=== PATIENT | male | born 1970 | race Caucasian/White ===

== ENCOUNTER 2023-09-28 14:11 | Emergency (ER) | payer OTHER, SELFPAY ==
[2023-09-28] VITALS (15 sets, daily range): BP systolic 122–193; BP diastolic 81–112; PULSE 69–83; RESP 14–25; TEMP 36.7; O2SAT 92–98; BMI 37.3
--- NOTE | 2023-09-28 14:31 | ECG_ITS ---
[facility] Test Date: 2023-09-28 Pat Name: Ubaldo Renee Department: Room: Gender: Male [employer]: : 1970 Requested By: Negrita Logan Order Number: [id number] Trinidad MD: Mathew Goodman M.D. Measurements Intervals [place] Rate: 83 P: 75 OR: 201 QRS: 66 QRSD: 106 T: 54 QT: 340 QTc: 402 Interpretive Statements SINUS RHYTHM Compared to ECG 12/08/2014 18:53:52 No significant changes Electronically Signed On 09-28-2023 20:06:56 CDT by Mathew Goodman M.D. [id number]
--- NOTE | 2023-09-28 14:31 | XRR_ITS ---
PROCEDURE INFORMATION: Exam: XR Chest Exam date and time: 09/28/2023 3:02 PM Age: 53 years old Clinical indication: Pain; Chest pressure; Additional info: Cp TECHNIQUE: Imaging protocol: Radiologic exam of the chest. Views: 1 view. COMPARISON: No relevant prior studies available. FINDINGS: Lungs: There is a 15 mm rounded density in the left lower lobe with no corresponding density on the contralateral side. While this still may represent a nipple shadow, a true pulmonary nodule cannot be excluded and a chest CT may be of benefit. Pleural spaces: Unremarkable. No pleural effusion. No pneumothorax. Heart/Mediastinum: Unremarkable. No cardiomegaly. Bones/joints: Unremarkable. XR/XR chest 1V portable [id number] IMPRESSION: There is a 15 mm rounded density in the left lower lobe with no corresponding density on the contralateral side. While this still may represent a nipple shadow, a true pulmonary nodule cannot be excluded and a chest CT may be of benefit.
[2023-09-28 14:57] LABS: Basophils % 0.5 %; Eosinophils # 0.2 10^3/uL (0.0-0.8); Hematocrit 44.5 % (37-53); Lymphocytes # 2.3 10^3/uL (0.8-4.8); Mean Corpuscular HGB Conc 32.6 g/dL (30-55); Mean Corpuscular Hemoglobin 29.6 pg (27-33); Mean Corpuscular Volume 90.8 fl (82-101); Mean Platelet Volume 10.1 fL (7.4-10.4); Monocytes # 0.6 10^3/uL (0.2-0.9); Monocytes % 8.1 %; Neutrophils # 4.38 10^3/uL (1.8-7.7); Neutrophils % 58.1 %; Nucleated Red Blood Cells % 0 %; Platelet Count 251 10^3/cmm (157-399); Red Cell Distribution Width 13.7 % (12.1-15.1); White Blood Count 7.54 10^3/uL (3.29-11.43)
[2023-09-28 15:15] LABS: Alanine Aminotransferase 19 U/L (0-41); Albumin Level 4.2 g/dL (3.5-5.2); Alkaline Phosphatase 72 U/L (40-130); Anion Gap 14.1 (5-19); Aspartate Amino Transferase 23 U/L (0-40); Blood Urea Nitrogen 18 mg/dL (6-20); Calcium 8.9 mg/dL (8.5-10.5); Carbon Dioxide 24 mmol/L (22-29); Chloride 102 mmol/L (98-107); Creatinine Clr Calc Pharmacy 98.9502; Globulin 3.4 g/dL (1.3-4.6); Glomerular Filtration Rate 77.9 mL/min (90-130); Glucose 135 mg/dL (65-115); Lipase 69 U/L (13-60); Osmolality Calculated 286 mOsm/kg (285-295); Potassium 4.1 mmol/L (3.5-5.1); Sodium 136 mmol/L (136-145); Total Bilirubin 0.3 mg/dL (0.15-1.2); Total Protein 7.6 g/dL (6.6-8.7)
[2023-09-28 15:16] LABS: Troponin(5th) Baseline 12 ng/L (0-15)
--- NOTE | 2023-09-28 16:16 | CTR_ITS ---
PROCEDURE INFORMATION: Exam: CTA Chest With Contrast Exam date and time: 09/28/2023 4:39 PM Age: 53 years old Clinical indication: Pain; Chest pressure and left-sided; Additional info: Sharp left sided chest, shoulder, back pain in 40+ smoker TECHNIQUE: Imaging protocol: Computed tomographic angiography of the chest with contrast. Exam focused on the arteries. 3D rendering (Not supervised by radiologist): MIP and/or 3D reconstructed images were created by the technologist. Radiation optimization: All CT scans at this facility use at least one of these dose optimization techniques: automated exposure control; mA and/or kV adjustment per patient size (includes targeted exams where dose is matched to clinical indication); or iterative reconstruction. Contrast material: OMNIPAQUE 350; Contrast volume: 76 ml; Contrast route: INTRAVENOUS (IV); COMPARISON: CR (CHEST, ) 09/28/2023 3:02 PM RADIATION DOSE METRICS: Total DLP (mGy-cm): 591.29 FINDINGS: Pulmonary arteries: No pulmonary emboli. Aorta: Unremarkable. No aortic aneurysm. No aortic dissection. Lungs: No focal consolidations. Pleural spaces: See Lymph nodes finding. Heart: Unremarkable. No cardiomegaly. No pericardial effusion. Lymph nodes: There is an 8 mm pleural lymph node on the right major fissure likely of no clinical significance. Bones/joints: Unremarkable. No acute fracture. Soft tissues: Unremarkable. Other findings: There is a calcified granuloma in the left lower lobe measuring up to 13 mm (series 5, image 46) also likely of no clinical significance. CT/CT angio chest PE protcl [id number] IMPRESSION: 1. No pulmonary emboli. 2. No focal consolidations.
--- NOTE | 2023-09-28 16:17 | ED_ITS ---
HPI - Chest Pain 2 General: Chief Complaint: Chest Pain Stated Complaint: CP, Back, arm Time Seen by Provider: 09/28/23 14:33 History of Present Illness: 53-year-old male presents emergency depa rtment with constant left-sided sharp chest pain radiating into his scapular region and shoulder. Patient reports it actually gets worse with resting. He does not have any change in dyspnea; he reports pretty severe COPD at baseline. He is a smoker. He does not frequently go to the doctor. Patient reports no diaphoresis, palpitations, syncope, leg swelling, orthopnea, history of myocardial infarction, recent illnesses, fevers, chills, sputum production. Patient reports no pain with range of motion of the left shoulder. He does not feel it is coming from musculoskeletal etiology. Sometimes sitting up and leaning back do affect the severity of the pain. He has reiterated that it has been constant for days. He actually went to a local hospital where he lives and was admitted overnight. They ruled him out for a cardiac etiology. Associated symptoms: Deny abdominal pain, fever(s), nausea, syncope or vomiting Related Data Previous Rx's Medication Instructions Recorded cyclobenzaprine 10 mg tablet 10 mg PO BID PRN muscle spasm #10 09/28/23 tabs fluticasone 250 mcg-salmeterol 50 1 inh inhalation BID #60 ea 09/28/23 mcg/dose blistr powdr for inhalation (Wixela Inhub) naproxen 375 mg tablet 375 mg PO BID 7 days #14 tabs 09/28/23 Allergies Allergy/AdvReac Type Severity Reaction Status Date / Time No Known Allergies Allergy Verified 09/28/23 14:19 Review of Systems 2 General: Reports: 10 or more systems reviewed and unremarkable except in HPI and below Const: Denies: fever(s), chills or body aches Eyes: Denies: change in vision ENMT: Denies: throat pain Card: Denies: chest pain, edema or syncope Resp: Denies: productive cough GI: Denies: abdominal pain, nausea, vomiting or diarrhea : Denies: flank pain, dysuria or urinary frequency Musc: Denies: extremity swelling Skin/Breast: Denies: rash or erythema Neuro: Denies: headache(s), numbness in extremities, weakness in extremities, lack of coordination or difficulty walking Physical Exam 2 Narrative: EXAM NARRATIVE: Patient is obese. He is nontoxic. His respiratory rate is increased. He has pursed lip breathing. He has a prolonged expiratory phase and decreased breath sounds. He does not have any tenderness of the chest wall. No costochondral tenderness. No abdominal tenderness. Passive range of motion of the left shoulder does not cause pain. He does have some periscapular myofascial tenderness to percussion. He does have stigmata of tobacco smoking including changes in the hair, nails, skin. Const: COMMON NORMALS: no limitations, alert and well nourished EXAM LIMITATIONS: no altered mental status HENMT: COMMON NORMALS: normocephalic, atraumatic and external ears normal H EAD & SCALP: normocephalic and atraumatic EXTERNAL EAR: Yes external ears normal MOUTH: no muffled voice Eye: COMMON NORMALS: EOMs intact bilaterally, conjunctivae normal and no scleral icterus CONJUNCTIVA: Yes conjunctivae normal Neck/C-Spine: COMMON NORMALS: no JVD GENERAL: Yes normal visual inspection and Yes trachea midline Cardio: COMMON NORMALS: no JVD, regular rate and regular rhythm RATE: r egular rate RHYTHM: regular rhythm GI: COMMON NORMALS: Soft to palpation and non-tender PALPATION: Yes Soft to palpation and No Guarding due to palpation present (GI) Extremity: COMMON NORMALS: normal to inspection Neuro: COMMON NORMALS: moves all extremities, no focal motor deficits and no sensory deficits noted SENSORIUM/ORIENTATION: Yes alert SPEECH: speech normal Psych: COMMON NORMALS: mental status grossly normal, Normal thought process present, cooperative, normal affect and speech normal SPEECH: Yes normal speech THOUGHT PROCESS: Normal thought process present Skin: COMMON NORMALS: no rashes or lesions noted, turgor normal and no jaundice GENERAL SKIN EXAM: no rashes or lesions noted and turgor normal Course 2 ED course: EKG my interpretation from 16 12 PM shows a sinus rhythm, normal axis, QRS 105 ms, no concerning ST segment elevations or depressions. No ischemic changes. No ectopy. Troponin baseline and delta troponin within normal limits. Patient given breathing treatments and pain medication. Chest x-ray my interpretation showed some sort of a nodular density in the left lower lung. A CTA of the chest was obtained to rule out PE, evaluate for any masses or adenopathy, and to evaluate this area. It looks to be benign according to the radiologist. No actionable lab findings to suggest cause of pain. Explained to patient that we have ruled a lot of things out but could not tell him specifically what the cause of his pain was. I am going to treat him with NSAIDs and muscle relaxers initially. The patient reports he has absolutely no gastric esophageal reflux or heartburn symptoms. He does have some tenderness in his back and his pain is constant. I think benefit outweighs risk for this at this point. I did talk to him about potential for doing stress testing. I have asked him to follow-up with his PCP to discuss risk benefits and alternatives. Vital Signs: Vital signs: Vital Signs Temperature 98.0 F 09/28/23 14:20 Pulse Rate 71 09/28/23 17:25 Respiratory Rate 18 09/28/23 17:20 Blood Pressure 167/108 09/28/23 16:30 Pulse Oximetry 96 09/28/23 17:20 Oxygen Delivery Me thod Room Air 09/28/23 17:20 MDM - Chest Pain Medical Decision Making Bedside ultrasound did not show any pericardial effusion. There were no gross wall motion abnormalities of the left ventricle. Differential diagnosis includes pericarditis, pleurisy, pulmonary embolism, chest wall pain, ACS, neoplastic process, pleurodynia, pulmonary hypertension, pleural effusion, pneumothorax, musculoskeletal pain, neuropathy, GERD, other. Lab Data 09/28/23 14:52 09/28/23 14:52 Radiology Impressions Chest X-Ray 09/28/23 14:31 IMPRESSION: There is a 15 mm rounded density in the left lower lobe with no corresponding density on the contralateral side. While this still may represent a nipple shadow, a true pulmonary nodule cannot be excluded and a chest CT may be of benefit. Chest CTA 09/28/23 16:16 IMPRESSION: 1. No pulmonary emboli. 2. No focal consolidations. Laboratory Results WBC 7.54 10^3/uL (3.29-11.43) 09/28/23 14:52 RBC 4.90 10^6/uL (3.85-5.65) 09/28/23 14:52 Hgb 14.50 g/dL (11.27-16.99) 09/28/23 14:52 Hct 44.5 % (37-53) 09/28/23 14:52 MCV 90.8 fl (82-101) 09/28/23 14:52 MCH 29.6 pg (27-33) 09/28/23 14:52 MCHC 32.6 g/dL (30-55) 09/28/23 14:52 RDW 13.7 % (12.1-15.1) 09/28/23 14:52 Plt Count 251 10^3/cmm (157-399) 09/28/23 14:52 MPV 10.1 fL (7.4-10.4) 09/28/23 14:52 Neut % (Auto) 58.1 % 09/28/23 14:52 Lymph % (Auto) 31.0 % 09/28/23 14:52 [place] % (Auto) 8.1 % 09/28/23 14:52 Eos % (Auto) 2.0 % 09/28/23 14:52 Baso % (Auto) 0.5 % 09/28/23 14:52 Neut # (Auto) 4.38 10^3/uL (1.8-7.7) 09/28/23 14:52 Lymph # (Auto) 2.3 10^3/uL (0.8-4.8) 09/28/23 14:52 [place] # (Auto) 0.6 10^3/uL (0.2-0.9) 09/28/23 14:52 Eos # (Auto) 0.2 10^3/uL (0.0-0.8) 09/28/23 14:52 Baso # (Auto) 0.0 10^3/uL (0.0-0.1) 09/28/23 14:52 Nucleated RBC % (auto) 0 % 09/28/23 14:52 Nucleated RBCs # 0.0 /100WBC 09/28/23 14:52 Sodium 136 mmol/L (136-145) 09/28/23 14:52 Potassium 4.1 mmol/L (3.5-5.1) 09/28/23 14:52 Chloride 102 mmol/L (98-107) 09/28/23 14:52 Carbon Dioxide 24 mmol/L (22-29) 09/28/23 14:52 Anion Gap 14.1 (5-19) 09/28/23 14:52 BUN 18 mg/dL (6-20) 09/28/23 14:52 Creatinine 1.0 mg/dL (0.7-1.2) 09/28/23 14:52 GFR Calculation 77.9 mL/min (90-130) L 09/28/23 14:52 Glucose 135 mg/dL (65-115) H 09/28/23 14:52 Calculated Osmolality 286 mOsm/kg (285-295) 09/28/23 14:52 Calcium 8.9 mg/dL (8.5-10.5) 09/28/23 14:52 Total Bilirubin 0.3 mg/dL (0.15-1.2) 09/28/23 14:52 AST 23 U/L (0-40) 09/28/23 14:52 ALT 19 U/L (0-41) 09/28/23 14:52 Alkaline Phosphatase 72 U/L (40-130) 09/28/23 14:52 Troponin T Baseline 12 ng/L (0-15) 09/28/23 14:52 Troponin T 120 Minute 10.51 ng/L (0-15) 09/28/23 16:50 Delta Troponin T -1.49 ABS# (0-10) L 09/28/23 16:50 Total Protein 7.6 g/dL (6.6-8.7) 09/28/23 14:52 Albumin 4.2 g/dL (3.5-5.2) 09/28/23 14:52 Globulin 3.4 g/dL (1.3-4.6) 09/28/23 14:52 Lipase 69 U/L (13-60) H 09/28/23 14:52 All radiology interpretation(s) finalized by discharge Discharge Plan Discharge Patient Disposition: Home Clinical Impression: Atypical chest pain Condition: Stable Prescriptions: New naproxen 375 mg tablet 375 mg PO BID 7 Days Qty: 14 0RF cyclobenzaprine 10 mg tablet 10 mg PO BID PRN (Reason: muscle spasm) Qty: 10 0RF fluticasone propion-salmeterol [Wixela Inhub] 250-50 mcg/dose blister with device 1 inh inhalation BID Qty: 60 0RF Discharge Orders: Discharge ED (Routine); Ordered 09/28/23 Ordered By: Filemon Mora Referrals: Tia Collier, ARCHITECTURAL PRACTICE MANAGER-C [Primary Care Provider] - 4-7 days Patient Instructions: Chest Pain (ED), Opioid Safety, Pain Management Activity Restrictions/Additional Instructions: He did not have any signs of heart attack or heart strain. He do have signs of COPD with impaired exhalation. He did not have any fluid collections around your heart. He did not have any signs of pneumonia, fluid in the lungs or pneumothorax. Please take medications as prescribed. Follow-up with your doctor and discussed the risk benefits and alternatives of doing further risk stratification such as a cardiac stress test. Coding Level of Care Code ED [employer] S[employer] for Nicky Elder
[2023-09-28] MEDS: labetalol 5 mg/mL SDV 20mL 20 MG IVP (16:21)
[2023-09-28] MEDS: lidocaine 2% viscous 15 ML, aluminum-mag hydrox-simethicon 30 ML, sucralfate oral liq 1 GM PO (16:22)
[2023-09-28] MEDS: dexamethasone 10 mg/mL INJ IVP (16:22)
[2023-09-28] MEDS: ketorolac 30 mg/mL INJ 15 MG IVP (16:22)
--- NOTE | 2023-09-28 16:31 | ECG_ITS ---
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 Measurements Intervals [place] Rate: 75 P: 62 [place]: 194 QRS: 58 QRSD: 105 T: 50 QT: 351 QTc: 393 Interpretive Statements SINUS RHYTHM Compared to ECG 09/28/2023 14:12:19 No significant changes Electronically Signed On 09-28-2023 20:10:29 CDT by Mathew Goodman M.D. [id number]
[2023-09-28] MEDS: iohexol 350 mg/mL 500 mL Btl (per mL) IV (16:50)
[2023-09-28] MEDS: ipratropium-albuterol 3 mL Neb 6 ML INHALATION (17:18)
[2023-09-28 17:28] LABS: Troponin 5 2HR 10.51 ng/L (0-15)
[2023-09-28 17:32] LABS: Troponin 5 2HR Delta -1.49 ABS# (0-10)
== END 2023-09-28 18:35 | disposition home or self-care (01) ==
PROVIDERS: Emergency Medicine; Emergency Provider Emergency Medicine; Family Provider Nurse Practitioner; PCP Nurse Practitioner
DX: R07.89 Other chest pain (principal); J44.9 Chronic obstructive pulmonary disease, unspecified; Z72.0 Tobacco use
CPT/HCPCS: 36415; 71045; 71275; 80053; 83690; 84484; 85025; 93005; 94640; 96374; 96375; 99285; J1100; J1885; J3490; Q9967